=== PATIENT | female | born 1960 | race Caucasian/White ===

== ENCOUNTER 2020-01-13 11:39 | Emergency (ER) | payer OTHER ==
[~2020-01-13] VITALS: Ht 157.5 cm; Wt 74.0 kg
[2020-01-13 11:55] VITALS: BP 199/91
--- NOTE | 2020-01-13 12:20 | NUR ---
IMAGING AT BEDSIDE.
--- NOTE | 2020-01-13 13:39 | NUR ---
TECH AT BEDSIDE FOR SPLINT.
--- NOTE | 2020-01-13 14:00 | NUR ---
REPORT GIVEN TO ZENON COTTON.
--- NOTE | 2020-01-13 14:14 | NUR ---
FIRST CONTACT WAITING FOR DC, POS CSMTP POST SPLINT.
== END 2020-01-13 14:32 | disposition home or self-care (01) ==
LOC: ED 12:19
DX: S52.501A Unspecified fracture of the lower end of right radius, initial encounter for closed fracture (principal); I10 Essential (primary) hypertension; E78.00 Pure hypercholesterolemia, unspecified; E03.9 Hypothyroidism, unspecified; X58.XXXA Exposure to other specified factors, initial encounter; Y93.89 Activity, other specified; Y92.009 Unspecified place in unspecified non-institutional (private) residence as the place of occurrence of the external cause; Y99.8 Other external cause status
CPT/HCPCS: 29125; 99283